=== PATIENT | male | born 1990 | race Native Hawaiian/Other Pacific Islander ===

== ENCOUNTER 2018-12-03 14:24 | Inpatient (IN) | payer BC, MEDICAID ==
[~2018-12-03] VITALS: Ht 170.2 cm; Wt 101.6 kg
[2018-12-03] VITALS: BP 109/70
[~2018-12-03 14:24] MED LIST: LISI10TA5 PO
--- NOTE | 2018-12-03 14:50 | NUR ---
IV STARTED AND BLOOD WAS DRAWN.
--- NOTE | 2018-12-03 14:55 | NUR ---
PT PRESENTED TO THE ER WITH A C/O RAPID HEART RATE/PALPATATIONS SINCE THIS AM. PT STATED THAT HE DID NOT TAKE ANY MEDICATIONS, DRUGS, OR ALCOHOL TODAY. PT TAKES LISINOPRIL 10MG DAILY FOR HIS HTN. PT'S HR IS 150 ON THE MONITOR. AFIB NOTED. DR LLANES IS AT THE BEDSIDE.
[2018-12-03 14:59] LABS: BASOPHILS % (AUTO) 0.5 % (0.0-2.0); EOSINOPHILS % (AUTO) 3.1 % (0.0-6.0); HEMATOCRIT 48 % (39-51); HEMOGLOBIN 15.2 g/dL (13.5-17.5); LYMPHOCYTES # (AUTO) 2.2 /CMM (0.8-4.8); LYMPHOCYTES % (AUTO) 27.2 % (20.0-44.0); MEAN CORPUSCULAR HGB CONC 32 g/dl (31.0-36.0); MEAN CORPUSCULAR VOLUME 67 fL (80-96); MONOCYTES # (AUTO) 0.6 /CMM (0.1-1.30); MONOCYTES % (AUTO) 7.4 % (2.0-12.0); NEUTROPHILS # (AUTO) 5.1 /CMM (1.8-8.9); NEUTROPHILS % (AUTO) 61.8 % (43.0-81.0); PLATELET COUNT (AUTO) 216 /CMM (150-450); RED BLOOD CELL COUNT(AUTO) 7.11 MIL/uL (4.5-6.0); WHITE BLOOD COUNT (AUTO) 8.3 K/uL (4.3-11.0)
[2018-12-03] MEDS ORDERED: DILTIAZEM HCL 25 MG IV ONE (15:00)
[2018-12-03] MEDS ORDERED: IV NS 0.9% 1,000 ML BAG IV ONE (15:00)
[2018-12-03] MEDS ORDERED: DILTIAZEM HCL 25 MG IV IVP ONE ×2 (15:00→16:30)
[2018-12-03 15:14] LABS: CALCIUM, SERUM 9.4 mg/dL (8.5-10.1); CARBON DIOXIDE 31 mmol/L (21-32); CHLORIDE 105 mmol/L (98-107); CREATININE 0.9 mg/dL (0.6-1.3); GLUCOSE 103 mg/dL (74-106); POTASSIUM 4.4 mmol/L (3.5-5.1); SODIUM SERUM 139 mmol/L (136-145); UREA NITROGEN, BLOOD 16 mg/dL (7-18)
[2018-12-03 15:19] LABS: ALANINE AMINOTRANSFERASE 120 U/L (12-78); ALBUMIN 4.2 g/dL (3.4-5.0); ALKALINE PHOSPHATASE 77 U/L (46-116); ASPARTATE AMINOTRANSFERASE 49 U/L (15-37); BILIRUBIN,DIRECT 0.1 mg/dL (0.0-0.2); BILIRUBIN,TOTAL 0.3 mg/dL (0.2-1.0); TOTAL PROTEIN, SERUM 8.2 g/dL (6.4-8.2)
--- NOTE | 2018-12-03 15:27 | NUR ---
patient is going to room 104 per RN schedule supervisor.
--- NOTE | 2018-12-03 16:15 | NUR ---
PATIENT IS OK TO STAY HERE ACCORDING TO KAJAL IN ADMITTING.
--- NOTE | 2018-12-03 16:18 | NUR ---
CALLING REPORT TO TELE NURSE. PT IS GOING TO [facility] 104-2 TELE. UNABLE TO GIVE REPORT AT THIS TIME. WILL CALL IN 10 MINS.
[2018-12-03] MEDS ORDERED: ASPIRIN 81 MG TAB.CHEW PO ONE (16:30)
[2018-12-03 16:38] LABS: EOSINOPHILS % (MANUAL) 2 % (0-4); LYMPHOCYTES % (MANUAL) 27 % (16-48); MONOCYTES % (MANUAL) 5 % (0-11.0); NEUTROPHILS % (MANUAL) 66 (42-76)
--- NOTE | 2018-12-03 16:41 | NUR ---
REPORT GIVEN ANYI MCCULLOUGH
[2018-12-03] MEDS ORDERED: ASPIRIN 81 MG TAB.CHEW ONE (16:43)
[2018-12-03] MEDS ORDERED: MAGNESIUM HYDROXIDE 30 ML UDC PO PRN (17:00)
[2018-12-03] MEDS ORDERED: HYDROCODONE/APAP 5/325MG 1 EACH TABLET PO PRN (17:00)
[2018-12-03] MEDS ORDERED: ZOLPIDEM TARTRATE 5 MG TABLET PO PRN (17:00)
[2018-12-03] MEDS ORDERED: ACETAMINOPHEN 325 MG TABLET PO PRN (17:00)
[2018-12-03] MEDS ORDERED: HYDROMORPHONE INJ 2 MG/ML DISP.SYRIN IV PRN (17:00)
[2018-12-03] MEDS ORDERED: MAG HYDROX/AL HYDROX/SIMETH 30 ML UDC PO PRN (17:00)
[2018-12-03] MEDS ORDERED: ONDANSETRON HCL/PF 4 MG/2 ML VIAL IVP PRN (17:00)
--- NOTE | 2018-12-03 17:00 | NUR ---
RN NOTE RECVD REPORT FROM [facility] ER. PATIENT IS ALERT AND ORIENTED X4. HE IS ABLE TO MAKE THINGS KNOWN AND VERBALIZES NEEDS. BREATHING EVEN AND UNLABORED WITH NO DISTRESS NOTED. ON BLIND LACER HR OF 103. SKIN WARM TO TOUCH AND INTACT. PATIENT IS ABLE TO AMBULATE WITH STEADY GAIT. IV SITE INTACT AND PATENT. ALL SAFETY MEASURES DONE. BED LOW AND LOCKED POSITION. WILL CONTINUE TO MONITOR PATIENT CLOSELY.
[2018-12-03 17:07] VITALS: BP 121/66
[2018-12-03] MEDS ORDERED: AMIODARONE 150 MG in IV D5W 100 ML IV ONE (17:30)
[2018-12-03] MEDS ORDERED: AMIODARONE 900 MG in IV D5W 482 ML IV PRN (17:30)
[2018-12-03] MEDS: IV NS 0.9% 1,000 ML IV PRN (17:32)
--- NOTE | 2018-12-03 17:52 | NUR ---
RN NOTE PER PATIENT ASA 162MG WAS GIVEN IN THE ER BY DEBBIE. DUPLICATE ORDER IN [facility] UNIT.
--- NOTE | 2018-12-03 17:55 | NUR ---
RN NOTE AMINO DRIP STARTED, PATIENT REMAINS STABLE WITH NO DISTRESS. HR OF 94 AT THIS TIME. WILL CONTINUE TO MONITOR.
--- NOTE | 2018-12-03 18:47 | NUR ---
RN NOTE PATIENT REMAINS STABLE THROUGHOUT SHIFT, NO DISTRESS NOTED. WILL ENDORSE TO NEXT SHIFT TO CONTINUE CONTINUITY OF CARE.
[2018-12-03 20:00] VITALS: BP 118/73
[2018-12-03] MEDS ORDERED: CARVEDILOL 6.25 MG TABLET PO SCH (21:00)
--- NOTE | 2018-12-03 22:45 | NUR ---
MEY/RN NOTES: RECEIVED PT. REPORT FROM ANYI ANNE. PT. IS A/O X 4. CONTINENT OF B/B. ON TELE MONITOR W/ AFIB CONTROLLED 94. DENIES ANY C/O CHEST PAIN OR SOB AT PRESENT. BED LOCKED AND IN LOW POSITION. VISITED BY FAMILY. CALL LIGHT W/REACH. WILL CONTINUE TO MONITOR. ON AMINO DRIP CHANGED FROM 1MG TO 0.5 MG.
[2018-12-04] VITALS: BP 118/73
[2018-12-04 04:00] VITALS: BP 111/68
[2018-12-04] MEDS: IV NS 0.9% 1,000 ML IV PRN (06:50)
--- NOTE | 2018-12-04 07:03 | NUR ---
MEY/RN NOTES: REPORT GIVEN TO AM NURSE FOR VIV.
[2018-12-04 07:14] LABS: BASOPHILS % (AUTO) 0.6 % (0.0-2.0); EOSINOPHILS % (AUTO) 3.3 % (0.0-6.0); HEMATOCRIT 45 % (39-51); HEMOGLOBIN 14.3 g/dL (13.5-17.5); LYMPHOCYTES # (AUTO) 2.2 /CMM (0.8-4.8); LYMPHOCYTES % (AUTO) 33.4 % (20.0-44.0); MEAN CORPUSCULAR HGB CONC 32 g/dl (31.0-36.0); MEAN CORPUSCULAR VOLUME 67 fL (80-96); MONOCYTES # (AUTO) 0.3 /CMM (0.1-1.30); MONOCYTES % (AUTO) 4.2 % (2.0-12.0); NEUTROPHILS # (AUTO) 3.9 /CMM (1.8-8.9); NEUTROPHILS % (AUTO) 58.5 % (43.0-81.0); PLATELET COUNT (AUTO) 209 /CMM (150-450); RED BLOOD CELL COUNT(AUTO) 6.71 MIL/uL (4.5-6.0); WHITE BLOOD COUNT (AUTO) 6.6 K/uL (4.3-11.0)
--- NOTE | 2018-12-04 07:30 | NUR ---
RN NOTES RECEIVED PATIENT SITTING IN BED, ALERT AND ORIENTEDX4, ABLE TO MAKE NEEDS KNOWN, ON ROOM AIR, BREATHING EVEN AND UNLABORED. NO SOB NOTED. NO COMPLAINTS OF PAIN. A FIB ON THE MONITOR WITH HR AT 102. ABLE TO MOVE AROUND IN BED. IV LINE ON THE LEFT AC, INPLACE AND INTACT, AMIODARONE DRIP RUNNING AT 0.5MG/MIN AT THIS TIME. PATIENT MADE AWARE OF THE PLANS OF CARE. ENCOURAGE TO USE CALL LIGHT FOR ASSISTANCE. SAFETY MEASURES OBSERVED AND MAINTAINED. WILL DO RANDOM CHECKS AND MONITOR PATIENT CLOSELY
[2018-12-04 07:52] LABS: THYROID STIMULATING HORMONE 6.275 uIU/mL (0.358-3.74)
[2018-12-04 08:00] VITALS: BP 141/69
[2018-12-04 08:09] LABS: CALCIUM, SERUM 8.7 mg/dL (8.5-10.1); CREATININE 0.9 mg/dL (0.6-1.3); MAGNESIUM 1.8 mg/dL (1.8-2.4); PHOSPHORUS 4.3 mg/dL (2.5-4.9)
[2018-12-04] MEDS: ASPIRIN 81 MG TAB.CHEW PO SCH (08:19)
[2018-12-04] MEDS: PANTOPRAZOLE 40 MG TABLET.DR PO SCH (08:19)
[2018-12-04 08:33] LABS: LYMPHOCYTES % (MANUAL) 38 % (16-48); MONOCYTES % (MANUAL) 4 % (0-11.0); NEUTROPHILS % (MANUAL) 58 (42-76)
[2018-12-04 09:39] LABS: BILIRUBIN,DIRECT 0.1 mg/dL (0.0-0.2); BILIRUBIN,TOTAL 0.5 mg/dL (0.2-1.0); TOTAL PROTEIN, SERUM 7.7 g/dL (6.4-8.2)
[2018-12-04] MEDS: ENOXAPARIN SODIUM 100 MG/ML DISP.SYRIN SQ SCH ×2 (10:54→23:17)
[2018-12-04 12:00] VITALS: BP 119/75
--- NOTE | 2018-12-04 15:25 | NUR ---
RN NOTES INFORMED DR LEONE PATIENT HAD CONVERTED TO SR WITH HR ON THE 80'S CURRENT HR AT 87. ASKED MD IF HE WOULD WANT TO CONTINUE WITH AMIODARONE DRIP, "YES AND CANCEL CARDIOVERSION". CLARIFIED WITH MD IF HE WOULD WANT TO HANG 2ND BAG OF AMIODARONE- AWAITING RESPONSE.
[2018-12-04 16:00] VITALS: BP 119/71
--- NOTE | 2018-12-04 16:00 | NUR ---
RN NOTES DR LEONE RESPONDED. NO TO AMIODARONE DRIP. OBTAINED ORDER FOR MUTAQ 400MG PO BID. ORDER NOTED AND CARRIED OUT
--- NOTE | 2018-12-04 16:01 | NUR ---
CANCELLED CARDIOVERSION PER MD,NURSING SUP NOTIFIED.
[2018-12-04] MEDS: DRONEDARONE HYDROCHLORIDE 400 MG TABLET PO SCH (17:29)
--- NOTE | 2018-12-04 19:30 | NUR ---
RN NOTES ENDORSED FOR CONTINUITY OF CARE. NO ACUTE CHANGES FOR THE ENTIRE SHIFT. ALL NURSING NEEDS ATTENDED AND MET. SAFETY MEASURES IN PLACE AT ALL TIMES. CALL LIGHT WITHIN REACH
--- NOTE | 2018-12-04 19:30 | NUR ---
TD RN: RECEIVED PT SITTING UP ON BED, A/O X 3. ON ROOM AIR WT NO ACUTE DISTRESS. NO C/O PAIN. ON S/P AMIODARONE DRIP WT NSR ON TELE MONITOR. AFEBRILE. BP WNL. LAC IV INTACT WT NO S/S OF INFILTRATION. ABLE TO AMBULATE WT STEADY BALANCE AND MOTIVATED TO SELF CARE. SAFETY PRECAUTION NOTED. CALL LIGHT KEPT WITHIN REACH. WILL CONTINUE TO MONITOR.
[2018-12-04 20:00] VITALS: BP 117/73
[2018-12-04] MEDS ORDERED: IV NS 0.9% 1,000 ML IV PRN (22:00)
[2018-12-05] VITALS: BP 116/68
[2018-12-05 04:00] VITALS: BP 117/81
--- NOTE | 2018-12-05 06:45 | NUR ---
TD RN NOTES NO ACUTE CHANGES NOTED DURING THE SHIFT. SR ON TELE. PT NPO MIDNIGHT. WILL ENDORSE TO THE AM NURSE FOR CONTINUITY OF CARE.
--- NOTE | 2018-12-05 07:30 | NUR ---
RN OPENING NOTES RECEIVED REPORT FROM SALES AND MARKETING REPRESENTATIVE RN. PT IS SLEEPING AND EXPECTED TO BE DISCHARGED TODAY. CALL LIGHT WITHIN REACH AND BED IS LOCKED AND IN LOWEST POSITION.
[2018-12-05] MEDS: PANTOPRAZOLE 40 MG TABLET.DR PO SCH (07:51)
[2018-12-05 08:00] VITALS: BP 108/79
--- NOTE | 2018-12-05 08:00 | NUR ---
RN NOTE: INFORMED RODOLFO SHEARER NP ABOUT THE PATIENT'S ULTRASOUND OF THE ABDOMEN FOR TODAY. PER ROLLER LEVELER, THE BROTH SETTER WILL BE COMING AT AROUND 0830 AND PATIENT HAS AM MEDICATIONS (PROTONIX, MULTAQ AND ASPIRIN) AND PATIENT WAS KEPT NPO FOR THE PROCEDURE. PER RODOLFO, LEILA TO GIVE MEDICATIONS BUT PATIENT WILL REMAIN NPO UNTIL TEST IS DONE. ORDER, NOTED AND CARRIED OUT. PATIENT MADE AWARE.
[2018-12-05] MEDS: ASPIRIN 81 MG TAB.CHEW PO SCH (08:10)
[2018-12-05] MEDS: DRONEDARONE HYDROCHLORIDE 400 MG TABLET PO SCH (08:10)
[2018-12-05 08:30] LABS: CALCIUM, SERUM 9.7 mg/dL (8.5-10.1); MAGNESIUM 1.9 mg/dL (1.8-2.4); POTASSIUM 4.8 mmol/L (3.5-5.1)
--- NOTE | 2018-12-05 11:00 | NUR ---
CW OPERATOR NOTE PT'S VITALS TAKEN. PT IS STABLE. PT WAS GIVEN EDUCATIONAL MATERIAL AND TAUGHT BACK WHAT WAS LEARNED. PT DENIES ANY SOB OR PAIN AT PRESENT MOMENT. PT WAS ACCOMPANIED BY HIS . ALL BELONGINGS RELEASED TO PT AND PRESCRIPTION WAS GIVEN TO PT.
== END 2018-12-05 11:30 | disposition home or self-care (01) | DRG 310 ==
LOC: ER 14:34 → TELE1 16:31 → TELE-TD 16:47
PROVIDERS: ADMIT Nurse Practitioner Acute Care; ATTEND Nurse Practitioner Acute Care
DX: I48.91 Unspecified atrial fibrillation (principal); I10 Essential (primary) hypertension; E66.9 Obesity, unspecified; Z68.33 Body mass index [BMI] 33.0-33.9, adult; M10.9 Gout, unspecified; G47.33 Obstructive sleep apnea (adult) (pediatric); Z79.899 Other long term (current) drug therapy; K76.0 Fatty (change of) liver, not elsewhere classified
CPT/HCPCS: 36415; 71045-TC; 76700-TC; 80048-TC; 80061-TC; 80076-TC; 83735-TC; 84100-TC; 84439-TC; 84443-TC; 84484-TC; 85025-TC; 87081-TC; 93307-TC; G0378; J0282; J1650; J3490; J7030; J7060

== ENCOUNTER 2018-12-10 12:01 | Outpatient (CLI) | payer BC, MEDICAID ==
[2018-12-10 12:16] VITALS: BP 134/94
== END 2018-12-10 23:59 | disposition home or self-care (01) ==
LOC: MSC 12:01
PROVIDERS: ATTEND Nurse Practitioner Acute Care
DX: G47.33 Obstructive sleep apnea (adult) (pediatric) (principal); I10 Essential (primary) hypertension; R74.0 Nonspecific elevation of levels of transaminase and lactic acid dehydrogenase [LDH]; K76.0 Fatty (change of) liver, not elsewhere classified; M10.9 Gout, unspecified; R94.6 Abnormal results of thyroid function studies; E66.9 Obesity, unspecified; Z68.33 Body mass index [BMI] 33.0-33.9, adult; Z71.3 Dietary counseling and surveillance